=== PATIENT | female | born 1950 | race Caucasian/White ===

== ENCOUNTER 2018-03-08 10:36 | Observation (INO) ==
[2018-03-08] MEDS ORDERED: Ondansetron 4 MG/2 ML VIAL IVP ONE (11:02)
[2018-03-08] MEDS ORDERED: *HR* Dextrose 50 % in Water (Syg) 50 ML SYRINGE IVP PRN ×2 (11:02→13:46)
[2018-03-08] MEDS ORDERED: Pantoprazole 40 MG VIAL IVP ONE (11:02)
[2018-03-08] MEDS ORDERED: 0.9 % Sodium Chloride 1,000 ML IVC ONE (11:02)
--- NOTE | 2018-03-08 11:04 | Emergency Department Note ---
Disposition Clinical Impression: Dehydration, Gastroenteritis and colitis, viral Diabetes mellitus Qualifiers: Diabetes mellitus type: type 2 Diabetes mellitus terminal superintendent insulin use: unspecified snf insulin use status Diabetes mellitus complication status: with hypoglycemia Diabetes mellitus complication detail: without coma Qualified Code(s): E11.649 - Type 2 diabetes mellitus with hypoglycemia without coma Disposition: Admitted As Inpatient Time of Disposition: 12:20 (Dr Evans accepted her as Trulicity may continue to lower her sugar given her Gastroenteritis at risk of hypoglycemic attacks) Abdominal Pain HPI - General Chief Complaint: ED General Medical Stated Complaint: feels bad, stomach hurting, vomiting Source: patient, EMS Mode of arrival: EMS Limitations: no limitations Nursing Notes Reviewed: Yes Vital Signs Reviewed: Yes - History of Present Illness HPI Narrative: Patient is a pleasant with past medical history significant for HTN, DM, Dyslipidemia, ND, CAD, seizure disorder and COPD who is presenting to [facility] Emergency Room with a chief complaint off hypoglycemia. She has switched lately to a new insulin injection weekly Trulicity medication which continues to release and some over the course of the week. She has been nausea as an complaining off vomiting and diarrhea and decreased oral intake. Subsequently she became hypoglycemic and fatigue. Patient denies any fever or chills. Pt also denies any eye pain or visual disturbances. There is no sore throat or facial or nasal congestion. There is no chest pain or racing heart. No shortness of breath or cough. There is no abdominal pain. No dysuria or flank pain. There is no muskulo-skeletal pain, arthralgia or back pain. Patient also denies rash or pruritus. There is no neurological manifestations, no headache, no vertigo or weakness. The patient also denies any depression, hallucinations and there are no homicidal or suicidal ideations. There is no polyuria or polydipsia. There is no easy bruising or bleeding. Review of other systems is otherwise negative except above. Onset (ago): hour(s) Consistency: Worsening Pain Scale: 7 - Related Data Home Medications Medication Instructions Recorded Confirmed Clopidogrel [Plavix] 75 mg PO DAILY 01/28/16 03/08/18 Docusate [Colace] 100 mg PO DAILY 01/28/16 03/08/18 Isosorbide MONOnitrate (24 HR) 30 mg PO DAILY 01/28/16 12/05/17 [Imdur] Levothyroxine [Synthroid] 112 mcg PO 0630 01/28/16 03/08/18 Metoprolol XL (24 HR) Succ [Toprol 50 mg PO DAILY 01/28/16 03/08/18 Xl] Morphine Sulfate [Nia] 30 mg PO TID PRN 01/28/16 03/08/18 Nitroglycerin [Nitrostat] 0.4 mg SL AD PRN MDD pain 01/28/16 03/08/18 Oxycodone HCl/Acetaminophen 1 tab PO Q6H PRN 01/28/16 03/08/18 [Percocet 5-325 mg Tablet] Pantoprazole Sodium [Protonix] 40 mg PO DAILY 01/28/16 03/08/18 Pregabalin [Lyrica] 150 mg PO TID 01/28/16 03/08/18 metFORMIN [Glucophage] 1,000 mg PO BIDWM 01/28/16 03/08/18 Albuterol Neb [Proventil Neb] 2.5 mg IH DAILY 04/25/17 03/08/18 Albuterol Sulfate [Ventolin Hfa] 18 gm IH Q6H PRN 04/25/17 03/08/18 Atorvastatin [Lipitor] 40 mg PO HS 04/25/17 03/08/18 Dulaglutide [Trulicity] 1.5 mg SQ QWEEK 03/08/18 03/08/18 Previous Rx's Medication Instructions Recorded Cholecalciferol (Vitamin D3) 5,000 unit PO BIDWM #60 capsule 02/01/16 [Dialyvite Vitamin D] Allergies Allergy/AdvReac Type Severity Reaction Status Date / Time aspirin Allergy Vomiting Verified 03/08/18 10:39 Penicillins Allergy Hives Verified 03/08/18 10:39 venom-honey bee Allergy Hives Verified 03/08/18 10:39 [bee venom (honey bee)] IVP dye AdvReac Nausea Uncoded 03/08/18 10:39 All systems ED: reviewed and negative except as stated. Review of Systems: As Per HPI Constitutional: Reports: weakness. Denies: fever, chills Eyes: Denies: eye pain, eye discharge, vision change ENT ED: Denies: ear pain, throat pain, dental pain Cardiovascular: Denies: chest pain, palpitations, dyspnea on exertion Respiratory: Denies: cough, dyspnea, wheezes Gastrointestinal: Reports: nausea, vomiting, diarrhea. Denies: abdominal pain Genitourinary: Denies: urgency, dysuria, frequency Musculoskeletal: Denies: back pain, neck pain, joint swelling Neurological: Reports: weakness Endocrine: Reports: fatigue. 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 Psychiatric history: Reports: no psych history - Social History Smoking status: Current every day smoker Alcohol use: Reports: none Drug use: Reports: none Physical Exam - General Limitations: no limitations General appearance: alert, in distress - Head Head exam: atraumatic, normocephalic, normal inspection - Eye Eye exam: Present: normal appearance, PERRL, EOMI - Expanded Eye Exam Pupils: Left: reactive - ENT ENT exam: normal exam, normal oropharynx, mucous membranes dry - Expanded ENT Exam External ear exam: Present: normal external inspection Mouth exam: Present: normal external inspection Teeth exam: Present: normal inspection Throat exam: Present: normal inspection - Neck Neck exam: Present: normal inspection, full ROM, trachea midline - Chest Chest inspection: Present: normal inspection, symmetric chest wall rise - Respiratory Respiratory exam: Present: normal lung sounds bilaterally - Cardiovascular Cardiovascular exam: Present: regular rate, normal rhythm, normal heart sounds - Abdominal Exam Abdominal exam: Present: soft, Non-Tender. Absent: tenderness, distention, guarding, rebound, rigidity - Extremities Exam Extremities exam: Present: normal inspection, full ROM. Absent: tenderness, pedal edema - Expanded Upper Extremity Exam Shoulder exam: Present: normal inspection, full ROM Arm exam: Present: normal inspection, full ROM Elbow exam: Present: normal inspection, full ROM Forearm/Wrist exam: Present: normal inspection, full ROM Hand exam: Present: normal inspection, full ROM Vascular exam: Normal: capillary refill, radial pulse - Expanded Lower Extremity Exam Hip/Pelvis exam: Present: normal inspection, full ROM Upper leg exam: Present: normal inspection, full ROM Knee exam: Present: normal inspection, full ROM Lower leg exam: Present: normal inspection, full ROM Ankle exam: Present: normal inspection, full ROM Foot/toe exam: Present: normal inspection, full ROM Neurovascular/Tendon exam: Absent: motor deficit, sensory deficit, tendon deficit - Back Exam Back exam: Present: normal inspection, full ROM. Absent: tenderness - Neurological Exam Neurological exam: Present: alert, oriented X3 - Expanded Neurological Exam Patient oriented to: Present: person, place, time Coma Scale Eye Opening: Spontaneous Coma Scale Motor Response: Obeys Commands Coma Scale Verbal Response: Oriented Coma Scale Total: 15 - Psychiatric Psychiatric exam: Present: normal affect, normal mood - Skin Skin exam: Present: warm, dry, intact, normal color, other (Pale and dry) Course Course Narrative: STAT IVF Zofran Accucheck and monitoring Vital Signs Temperature 98 F 03/08/18 10:40 Pulse Rate 75 03/08/18 10:40 Respiratory Rate 18 03/08/18 10:40 Blood Pressure 142/68 03/08/18 10:40 O2 Sat by Pulse Oximetry 96 03/08/18 10:40 Temperature 97.6 F 03/08/18 13:45 Pulse Rate 70 03/08/18 13:45 Respiratory Rate 18 03/08/18 13:45 Blood Pressure 125/67 03/08/18 13:45 O2 Sat by Pulse Oximetry 96 03/08/18 13:45 Oxygen Delivery Oxygen Delivery Room Air Abdominal Pain - Differential Diagnosis Differential Diagnosis: Likely: acute appendicitis, calculus of kidney, colonic obstruction, pancreatitis - Medical Records Medical records reviewed: Yes I reviewed the patient's medical records. - Lab Data Lab results reviewed: Yes I reviewed the patient's lab results. Result diagrams: 03/08/18 11:15 03/08/18 11:15 Lab Results 03/08/18 03/08/18 03/08/18 Range/Units 11:15 11:15 11:15 WBC 10.0 (4.3-11.1) K/mcL RBC 4.96 (3.82-4.97) M/mcL Hgb 14.6 (11.5-15.4) g/dL Hct 43.7 (35.3-44.9) % MCV 88.1 (83.0-100.0) fL MCH 29.4 (28.0-33.3) pg MCHC 33.4 (31.6-35.5) g/dL RDW 14.1 (11.5-14.5) % Plt Count 226 (140-400) K/mcL MPV 8.6 L (9.4-12.4) fL Immature Gran % 0.3 (0-4) % Seg Neutrophils % 72.0 % Lymphocytes % 18.8 % Monocytes % 7.0 % Eosinophils % 1.7 % Basophils % 0.2 % Neutrophils # 7.2 (1.6-8.9) K/mcL Lymphocytes # 1.9 (0.6-4.6) K/mcL Monocytes # 0.7 (0.0-1.3) K/mcL Eosinophils # 0.2 (0.0-0.6) K/mcL Basophils # 0.0 (0.0-0.2) K/mcL PT 12.3 H (9.4-12.1) Seconds INR 1.1 APTT 34.6 (26.0-36.0) Seconds Sodium 135 L (136-145) mEq/L Potassium 3.8 (3.5-5.1) mEq/L Chloride 102 (98-107) mEq/L Carbon Dioxide 25 (23-29) mEq/L BUN 11 (8-23) mg/dL Creatinine 0.98 (0.60-1.20) mg/dL Est GFR ( Amer) > 60 (> 60) Est GFR (Non-Af Amer) 56 L (> 60) BUN/Creatinine Ratio 11 (6-26) Glucose 145 H (70-105) mg/dL POC Glucose (70-99) mg/dL Calculated Osmolality 282 (280-300) Lactic Acid (0.5-2.2) mmol/L Calcium 9.4 (8.6-10.3) mg/dL Total Bilirubin 0.4 (0.3-1.0) mg/dL Direct Bilirubin 0.1 (0.0-0.2) mg/dL Indirect Bilirubin 0.3 (0.0-1.2) mg/dL AST 10 L (13-39) Units/L ALT 6 L (7-52) Units/L Alkaline Phosphatase 88 (34-104) Units/L Serum Total Protein 6.9 (6.4-8.9) g/dL Albumin 3.5 (3.5-5.7) g/dL Globulin 3.4 (2.4-3.5) g/dL Albumin/Globulin Ratio 1.0 L (1.1-2.2) Lipase 18 (11-82) Units/L Urine Color (Yellow) Urine Clarity (Clear) Urine pH (5.0-8.0) pH Units Ur Specific [place] (1.010-1.025) Urine Protein (Neg-Trace) mg/dL Urine Glucose (UA) (Normal) mg/dL Urine Ketones (Negative) mg/dL Urine Blood (Negative) Urine Nitrite (Negative) Urine Bilirubin (Negative) Urine Urobilinogen (Normal) mg/dL Ur Leukocyte Esterase (Negative) Urine Microscopic RBC (0-3) per hpf Urine Microscopic WBC (0-3) per hpf Ur Squamous Epith Cells (None-Few) per lpf Urine Bacteria (None-Few) per hpf Hyaline Casts (None-Few) per lpf Ur Culture Indicated? (NO) 03/08/18 03/08/18 03/08/18 Range/Units 11:15 11:17 12:05 WBC (4.3-11.1) K/mcL RBC (3.82-4.97) M/mcL Hgb (11.5-15.4) g/dL Hct (35.3-44.9) % MCV (83.0-100.0) fL MCH (28.0-33.3) pg MCHC (31.6-35.5) g/dL RDW (11.5-14.5) % Plt Count (140-400) K/mcL MPV (9.4-12.4) fL Immature Gran % (0-4) % Seg Neutrophils % % Lymphocytes % % Monocytes % % Eosinophils % % Basophils % % Neutrophils # (1.6-8.9) K/mcL Lymphocytes # (0.6-4.6) K/mcL Monocytes # (0.0-1.3) K/mcL Eosinophils # (0.0-0.6) K/mcL Basophils # (0.0-0.2) K/mcL PT (9.4-12.1) Seconds INR APTT (26.0-36.0) Seconds Sodium (136-145) mEq/L Potassium (3.5-5.1) mEq/L Chloride (98-107) mEq/L Carbon Dioxide (23-29) mEq/L BUN (8-23) mg/dL Creatinine (0.60-1.20) mg/dL Est GFR ( Amer) (> 60) Est GFR (Non-Af Amer) (> 60) BUN/Creatinine Ratio (6-26) Glucose (70-105) mg/dL POC Glucose 148 H (70-99) mg/dL Calculated Osmolality (280-300) Lactic Acid 1.5 (0.5-2.2) mmol/L Calcium (8.6-10.3) mg/dL Total Bilirubin (0.3-1.0) mg/dL Direct Bilirubin (0.0-0.2) mg/dL Indirect Bilirubin (0.0-1.2) mg/dL AST (13-39) Units/L ALT (7-52) Units/L Alkaline Phosphatase (34-104) Units/L Serum Total Protein (6.4-8.9) g/dL Albumin (3.5-5.7) g/dL Globulin (2.4-3.5) g/dL Albumin/Globulin Ratio (1.1-2.2) Lipase (11-82) Units/L Urine Color Yellow (Yellow) Urine Clarity Slightly Cloudy A (Clear) Urine pH 5.5 (5.0-8.0) pH Units Ur Specific [place] <= 1.005 L (1.010-1.025) Urine Protein Negative (Neg-Trace) mg/dL Urine Glucose (UA) Normal (Normal) mg/dL Urine Ketones Negative (Negative) mg/dL Urine Blood Negative (Negative) Urine Nitrite Positive A (Negative) Urine Bilirubin Negative (Negative) Urine Urobilinogen Normal (Normal) mg/dL Ur Leukocyte Esterase Small H (Negative) Urine Microscopic RBC 0-3 (0-3) per hpf Urine Microscopic WBC 15-30 H (0-3) per hpf Ur Squamous Epith Cells Few (None-Few) per lpf Urine Bacteria Many H (None-Few) per hpf Hyaline Casts Few (None-Few) per lpf Ur Culture Indicated? YES A (NO) - Radiology Data Radiology results reviewed: Yes I reviewed the patient's radiology results. - EKG Data EKG attestation: Yes I reviewed and interpreted this EKG.
[2018-03-08] MEDS ORDERED: Insulin Human Regular 100 UNIT in 0.9 % Sodium Chloride 100 ML IVC SCH (11:15)
[2018-03-08 11:22] LABS: Basophils % 0.2 %; Eosinophils # 0.2 K/mcL (0.0-0.6); Eosinophils % 1.7 %; Hematocrit 43.7 % (35.3-44.9); Hemoglobin 14.6 g/dL (11.5-15.4); Immature Granulocytes % 0.3 % (0-4); Lymphocytes # 1.9 K/mcL (0.6-4.6); Lymphocytes % 18.8 %; Mean Corpuscular HGB Conc 33.4 g/dL (31.6-35.5); Mean Corpuscular Hemoglobin 29.4 pg (28.0-33.3); Mean Corpuscular Volume 88.1 fL (83.0-100.0); Mean Platelet Volume 8.6 fL (9.4-12.4); Monocytes # 0.7 K/mcL (0.0-1.3); Neutrophils # 7.2 K/mcL (1.6-8.9); Platelet Count 226 K/mcL (140-400); Red Blood Count 4.96 M/mcL (3.82-4.97); Red Cell Distribution Width 14.1 % (11.5-14.5)
[2018-03-08 11:31] LABS: INR 1.1; Prothrombin Time 12.3 Seconds (9.4-12.1)
[2018-03-08 11:34] LABS: Activated Partial Thrombo Time 34.6 Seconds (26.0-36.0)
[2018-03-08 11:40] LABS: Alanine Aminotransferase 6 Units/L (7-52); Albumin 3.5 g/dL (3.5-5.7); Alkaline Phosphatase 88 Units/L (34-104); Aspartate Amino Transferase 10 Units/L (13-39); BUN/Creatinine Ratio 11 (6-26); Bilirubin,Direct 0.1 mg/dL (0.0-0.2); Bilirubin,Indirect 0.3 mg/dL (0.0-1.2); Bilirubin,Total 0.4 mg/dL (0.3-1.0); Blood Urea Nitrogen 11 mg/dL (8-23); Calcium 9.4 mg/dL (8.6-10.3); Carbon Dioxide 25 mEq/L (23-29); Chloride 102 mEq/L (98-107); Globulin 3.4 g/dL (2.4-3.5); Glucose 145 mg/dL (70-105); Lipase 18 Units/L (11-82); Osmolality,Calculated 282 (280-300); Potassium 3.8 mEq/L (3.5-5.1); Sodium 135 mEq/L (136-145); Total Protein 6.9 g/dL (6.4-8.9); eGFR For African Americans > 60 (> 60); eGFR For Non-African Americans 56 (> 60)
[2018-03-08 12:13] LABS: Bilirubin,Urine Negative (Negative); Blood,Urine Negative (Negative); Clarity,Urine Slightly Cloudy (Clear); Color,Urine Yellow (Yellow); Glucose,Urine (UA) Normal (Normal); Ketones,Urine Negative (Negative); Leukocyte Esterase,Urine Small (Negative); Nitrite,Urine Positive (Negative); PH,Urine 5.5 pH Units (5.0-8.0); Protein,Urine Negative (Neg-Trace); Specific Gravity,Urine <= 1.005 (1.010-1.025); Urobilinogen,Urine Normal (Normal)
[2018-03-08 12:21] LABS: RBC,Urine 0-3 per hpf (0-3); WBC,Urine 15-30 per hpf (0-3)
[2018-03-08 12:22] LABS: Hyaline Casts,Urine Few per lpf (None-Few); Squamous Epithelial Cell,Urine Few per lpf (None-Few)
[2018-03-08 12:23] LABS: Bacteria,Urine Many per hpf (None-Few)
[2018-03-08] MEDS ORDERED: Naloxone 0.4 MG/ML INJ IVP PRN ×2 (12:47→13:46)
[2018-03-08] MEDS ORDERED: 0.9 % Sodium Chloride 1,000 ML IVC SCH ×2 (13:00→13:46)
[2018-03-08] MEDS ORDERED: *HR* Morphine Sulfate SR (12 HR) 30 MG TABLET.ER PO PRN (13:46)
[2018-03-08] MEDS ORDERED: *HR* OxyCODONE/APAP 5/325 TABLET PO PRN (13:46)
[2018-03-08] MEDS ORDERED: Nitroglycerin 0.4 MG TAB.SUBL SL PRN (13:46)
[2018-03-08] MEDS: Cholecalciferol (D-3) 1,000 UNIT TABLET PO SCH (15:43)
--- NOTE | 2018-03-08 17:50 | Internal Med History&Physical ---
Date of Encounter: 03/08/18 Time of Encounter: 17:15 Assessment and Plan (1) Vomiting Current visit: Yes Status: Acute She will be given IV fluids. Anti-emetics will be used as needed. Qualifiers: Vomiting type: unspecified Vomiting Intractability: non-intractable Nausea presence: with nausea Qualified Code(s): R11.2 - Nausea with vomiting, unspecified (2) UTI (urinary tract infection) Current visit: Yes Status: Acute She will be given Rocephin empirically. Qualifiers: Urinary tract infection type: site unspecified Hematuria presence: without hematuria Qualified Code(s): N39.0 - Urinary tract infection, site not specified Internal Medicine - H&P: HPI Chief complaint: Vomiting Admitted From: Emergency Dept Plans for Post Hospital Care: Home History of present illness: Ms. Lund is a 67 year old female who came to emergency room stating she had onset of vomiting approximately 10 days ago after initiation of weekly Trulicity injection. She reports intermittent vomiting without hematemesis over the next 10 days. She had small amount of diarrhea and mild abdominal discomfort. When she did not improve spontaneously her family and home health providers recommend she come to emergency room. She was evaluated and admitted to [facility] floor for ongoing care needs. She states she still has mild abdominal discomfort at the present time. She reports no family members are similarly affected. She denies disorders of her liver gallbladder or exocrine pancreas otherwise. Past Med Surg Social Fam HX - Past Medical History Medical history: arthritis, CHF, COPD, coronary artery disease, CVA, diabetes, fibromyalgia, GERD, hyperlipidemia, hypertension, myocardial infarction, seizures, thyroid disease Psychiatric history: no psych history - Past Surgical History Surgical History: non-contributory, orthopedic, other, other Additional surgical history: back surgery x 3, HEART STENTS X 2, rt shoulder replacement, and left shoulder surgery - Social History Smoking Status: Current every day smoker Packs per day: 0.5 Smokeless Tobacco Status: No Alcohol use: none Drug use: none Internal Medicine - H&P: Meds Clopidogrel [Plavix] 75 mg PO DAILY 01/28/16 [History] Docusate [Colace] 100 mg PO DAILY 01/28/16 [History] Isosorbide MONOnitrate (24 HR) [Imdur] 30 mg PO DAILY 01/28/16 [History] Levothyroxine [Synthroid] 112 mcg PO 30 01/28/16 [History] Metoprolol XL (24 HR) Succ [Toprol Xl] 50 mg PO DAILY 01/28/16 [History] Morphine Sulfate [Nia] 30 mg PO TID PRN 01/28/16 [History] Nitroglycerin [Nitrostat] 0.4 mg SL AD PRN MDD pain 01/28/16 [History] Oxycodone HCl/Acetaminophen [Percocet 5-325 mg Tablet] 1 tab PO Q6H PRN [History] Pantoprazole Sodium [Protonix] 40 mg PO DAILY 01/28/16 [History] Pregabalin [Lyrica] 150 mg PO TID 01/28/16 [History] metFORMIN [Glucophage] 1,000 mg PO BIDWM 01/28/16 [History] Cholecalciferol (Vitamin D3) [Dialyvite Vitamin D] 5,000 unit PO BIDWM #60 capsule 02/01/16 [Rx] Albuterol Neb [Proventil Neb] 2.5 mg IH DAILY 04/25/17 [History] Albuterol Sulfate [Ventolin Hfa] 18 gm IH Q6H PRN 04/25/17 [History] Atorvastatin [Lipitor] 40 mg PO HS 04/25/17 [History] Dulaglutide [Trulicity] 1.5 mg SQ QWEEK 03/08/18 [History] 3 Allergy/AdvReac Type Severity Reaction Status Date / Time aspirin Allergy Vomiting Verified 03/08/18 10:39 Penicillins Allergy Hives Verified 03/08/18 10:39 venom-honey bee Allergy Hives Verified 03/08/18 10:39 [bee venom (honey bee)] IVP dye AdvReac Nausea Uncoded 03/08/18 10:39 All Systems PM: A 10-system review of systems was performed and is negative for pertinent findings except as documented above in the HPI. Review of systems: Gen.: She states her weight is decreased approximately 20 pounds in the past year, unintentionally Cardiovascular: She has had hypertension documented intermittently in the past. She has known ASHD status post OH on 3 occasions with most recent one approximately 2008. She reports stents were placed approximately 2008 and 2009. Her most recent heart catheter was 04/26/2017 at [facility] which showed LMCA free of disease, 60% stenosis in ostial LAD, 30-40% stenosis in mid LAD, 40% stenosis in distal circumflex, 70% stenosis in ostial RCA, and 50% stenosis in proximal RCA. She denies DVT or pulmonary embolus. She reports a history of heart failure. Echocardiogram 04/05/2017 showed LVEF 60% with mild LV diastolic dysfunction no significant valvular abnormality seen. Respiratory: She has smoked since age 8 up to 4 packs per day. She reports she changed from cigarettes to small cigars approximately 4 years ago. She has a diagnosis of COPD and uses oxygen at bedtime. She has been diagnosed with TAMARA but states she cannot tolerate CPAP mask secondary to claustrophobia GI: As per history of present illness : She had decreased estimated GFR in emergency room but denies known diagnoses of chronic kidney disease. She denies disorders of her kidney or bladder otherwise. 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 She reports seizures in childhood but none that she can recall in adulthood. Endocrine: She was diagnosed with DM 2 approximately 2009. She has hypothyroidism and hyperlipidemia. Hematology/oncology: She has history of anemia. She denies documented internal malignancies. Psychiatric: She denies anxiety depression or other mental health issues [place] skeletal: She reports injury to rotator cuff bilaterally, DJD and fibromyalgia diagnoses. She reports 3 back surgeries and has chronic low back pain. She had right hip fracture repair in the past. - Constitutional Vitals: Temp Pulse Resp BP Pulse Ox 97.6 F 70 18 125/67 96 03/08/18 13:45 03/08/18 13:45 03/08/18 13:45 03/08/18 13:45 03/08/18 13:45 Exam: Gen.: She is well-developed well-nourished female who appears in no acute distress at present time HEENT: Head is atraumatic and normocephalic. Eyes: EOMI. There is no scleral icterus. Mouth: Mucosa is moist. Neck: Supple and nontender. There is no thyromegaly or adenopathy noted. Heart: Regular without murmurs gallops or ectopics. Lungs: No wheezes or crackles are heard. Abdomen: Soft and nontender. No masses or guarding are noted. Extremities: There is no cyanosis edema or clubbing noted. Dorsalis pedis and posterior tibial pulses are 1-2 over 2 bilaterally. Neurologic: Mental status: She is talkative and a good historian. Cranial nerves: Smile is symmetric. Forehead wrinkles bilaterally. Tongue protrudes midline. EOMI. Motor: There is no pronator drift. Cerebellar: Finger to nose is intact bilaterally. Skin: Warm and dry Internal Med - H&P Results - Labs CBC & Chem 7: 03/08/18 11:15 03/08/18 11:15
[2018-03-08] MEDS: Pregabalin 75 MG CAPSULE PO SCH ×2 (18:13→19:57)
[2018-03-08] MEDS: cefTRIAXone 1,000 MG in Water for inj. (sterile) 20 ML 10 ML IVP SCH (19:55)
[2018-03-08] MEDS: 0.45 % Sodium Chloride w/KCl 20 MEQ/1,000 ML MLS IVC SCH (19:56)
[2018-03-09 06:52] LABS: Basophils % 0.2 %; Eosinophils # 0.2 K/mcL (0.0-0.6); Eosinophils % 2.4 %; Hematocrit 40.2 % (35.3-44.9); Hemoglobin 13.2 g/dL (11.5-15.4); Immature Granulocytes % 0.4 % (0-4); Lymphocytes # 1.9 K/mcL (0.6-4.6); Lymphocytes % 20.2 %; Mean Corpuscular HGB Conc 32.8 g/dL (31.6-35.5); Mean Corpuscular Hemoglobin 29.4 pg (28.0-33.3); Mean Corpuscular Volume 89.5 fL (83.0-100.0); Mean Platelet Volume 8.4 fL (9.4-12.4); Monocytes # 0.6 K/mcL (0.0-1.3); Neutrophils # 6.7 K/mcL (1.6-8.9); Platelet Count 192 K/mcL (140-400); Red Blood Count 4.49 M/mcL (3.82-4.97); Red Cell Distribution Width 14.3 % (11.5-14.5); Segmented Neutrophils % 70.8 %
[2018-03-09 07:11] LABS: BUN/Creatinine Ratio 11 (6-26); Blood Urea Nitrogen 10 mg/dL (8-23); Calcium 8.5 mg/dL (8.6-10.3); Carbon Dioxide 22 mEq/L (23-29); Chloride 108 mEq/L (98-107); Glucose 133 mg/dL (70-105); Osmolality,Calculated 283 (280-300); Potassium 3.8 mEq/L (3.5-5.1); Sodium 136 mEq/L (136-145); eGFR For African Americans > 60 (> 60); eGFR For Non-African Americans 58 (> 60)
[2018-03-09 07:14] VITALS: BP 116/66
[2018-03-09] MEDS: Pregabalin 75 MG CAPSULE PO SCH (08:37)
[2018-03-09] MEDS: cefTRIAXone 1,000 MG in Water for inj. (sterile) 20 ML 10 ML IVP SCH (08:38)
[2018-03-09] MEDS: Cholecalciferol (D-3) 1,000 UNIT TABLET PO SCH (08:38)
[2018-03-09] MEDS: 0.45 % Sodium Chloride w/KCl 20 MEQ/1,000 ML MLS IVC SCH (08:43)
[2018-03-09] MEDS ORDERED: Albuterol 2.5 MG/3 ML NEBULIZER IH PRN (09:00)
[2018-03-09] MEDS ORDERED: Metoprolol XL (24 HR) Succ 25 MG TAB.ER.24H PO SCH (09:00)
[2018-03-09] MEDS ORDERED: Isosorbide MONOnitrate (24 HR) 30 MG TAB.ER.24H PO SCH (09:00)
--- NOTE | 2018-03-09 10:55 | Discharge Summary ---
Date of Encounter: 03/09/18 Time of Encounter: 10:20 - Discharge Diagnosis (1) Vomiting Priority: Primary Status: Resolved Qualifiers: Vomiting type: unspecified Vomiting Intractability: non-intractable Nausea presence: with nausea Qualified Code(s): R11.2 - Nausea with vomiting, unspecified (2) UTI (urinary tract infection) Priority: Secondary Status: Acute Qualifiers: Urinary tract infection type: site unspecified Hematuria presence: without hematuria Qualified Code(s): N39.0 - Urinary tract infection, site not specified Hospital course: Ms. Lund is a 67 year old female who came to emergency room stating she had onset of vomiting approximately 10 days ago after initiation of weekly Trulicity injection. She reports intermittent vomiting without hematemesis over the next 10 days. She had small amount of diarrhea and mild abdominal discomfort. When she did not improve spontaneously her family and home health providers recommend she come to emergency room. She was evaluated and admitted to [facility] for ongoing care needs. Initial orders were written by the emergency room physician. I saw her on March 08 and performed a history and physical. She was given IV fluids. Antiemetics were used as needed. She had no further vomiting after admission. Oral intake was adequate. On March 09 she was stable for discharge home. She will follow with her PCP Dr. Deni Frank within 1 week. She will be given Zofran ODT for prn use for nausea. She was given Rocephin empirically for UTI. She remained afebrile and follow- up WBC and differential were unremarkable. She will continue with 2 additional days of antibiotic and probiotic at discharge. - Time Spent with Patient Total time spent providing and/or coordinating discharge services: - Discharge Medications Prescriptions: Ondansetron ODT [Zofran ODT] 4 mg SL Q4HR #6 tab.rapdis Lactobacillus [Culturelle] 1 each PO BID #4 cap.sprink Nitrofurantoin Monohyd/M-Cryst [Macrobid 100 mg Capsule] 100 mg PO BID #4 capsule Home Medications: Clopidogrel [Plavix] 75 mg PO DAILY 01/28/16 [History] Docusate [Colace] 100 mg PO DAILY 01/28/16 [History] Isosorbide MONOnitrate (24 HR) [Imdur] 30 mg PO DAILY 01/28/16 [History] Levothyroxine [Synthroid] 112 mcg PO 0630 01/28/16 [History] Metoprolol XL (24 HR) Succ [Toprol Xl] 50 mg PO DAILY 01/28/16 [History] Morphine Sulfate [Nia] 30 mg PO TID PRN 01/28/16 [History] Nitroglycerin [Nitrostat] 0.4 mg SL AD PRN MDD pain 01/28/16 [History] Oxycodone HCl/Acetaminophen [Percocet 5-325 mg Tablet] 1 tab PO Q6H PRN [History] Pantoprazole Sodium [Protonix] 40 mg PO DAILY 01/28/16 [History] Pregabalin [Lyrica] 150 mg PO TID 01/28/16 [History] metFORMIN [Glucophage] 1,000 mg PO BIDWM 01/28/16 [History] Cholecalciferol (Vitamin D3) [Dialyvite Vitamin D] 5,000 unit PO BIDWM #60 capsule 02/01/16 [Rx] Albuterol Neb [Proventil Neb] 2.5 mg IH DAILY 04/25/17 [History] Albuterol Sulfate [Ventolin Hfa] 18 gm IH Q6H PRN 04/25/17 [History] Atorvastatin [Lipitor] 40 mg PO HS 04/25/17 [History] Dulaglutide [Trulicity] 1.5 mg SQ QWEEK 03/08/18 [History] Lactobacillus [Culturelle] 1 each PO BID #4 cap.sprink 03/09/18 [Rx] Nitrofurantoin Monohyd/M-Cryst [Macrobid 100 mg Capsule] 100 mg PO BID #4 capsule 03/09/18 [Rx] Ondansetron ODT [Zofran ODT] 4 mg SL Q4HR #6 tab.rapdis 03/09/18 [Rx] Allergies/Adverse Reactions: 3 Allergy/AdvReac Type Severity Reaction Status Date / Time aspirin Allergy Vomiting Verified 03/08/18 10:39 Penicillins Allergy Hives Verified 03/08/18 10:39 venom-honey bee Allergy Hives Verified 03/08/18 10:39 [bee venom (honey bee)] IVP dye AdvReac Nausea Uncoded 03/08/18 10:39 Date of admission: 03/08/18 13:31 Primary care physician: Deni Frank MD Consults: 03/08/18 14:01 Consult to Doctor Of Naturopathic Medicine [CONS] Routine Reason for SW Consult: pt has home health services - Constitutional Vitals: Temp Pulse Resp BP Pulse Ox 98.4 F 82 17 116/66 92 03/09/18 07:11 03/09/18 07:11 03/09/18 07:11 03/09/18 07:11 03/09/18 08:00 - Patient Status Disposition: Home Health Service Overall status at discharge: patient is progressing back to baseline - Discharge Instructions Follow Up With: Deni Frank MD [Primary Care Provider] - 1 week - Diet and Activity Activity: resume usual activities as tolerated Diet: advance to your usual diet
== END 2018-03-09 12:40 | disposition home health service (06) ==
LOC: INPPIK 10:36 → EMEROOPIK 10:36 → INPPIK 13:40
PROVIDERS: ADMIT Internal Medicine; ATTEND Internal Medicine

== ENCOUNTER 2020-02-14 12:43 | Inpatient (IN) ==
[2020-02-15] MEDS ORDERED: Albuterol 2.5 MG/3 ML NEBULIZER IH PRN (12:18)
[2020-02-15] MEDS ORDERED: Nitroglycerin 0.4 MG TAB.SUBL SL PRN (12:18)
[2020-02-15] MEDS ORDERED: Dextrose Gel 15 GM/37.5 ML TUBE PO PRN ×2 (12:25)
[2020-02-15] MEDS ORDERED: D5% in Water 1,000 ML IVC PRN (12:25)
[2020-02-15] MEDS ORDERED: *HR* Dextrose 50 % in Water (Syg) 50 ML SYRINGE IVP PRN (12:25)
[2020-02-15] MEDS ORDERED: Morphine Sulfate ER (12 HR) 30 MG TABLET.ER PO SCH (12:30)
[2020-02-15] MEDS: Insulin LISPRO 300 UNITS/3 ML VIAL SQ SCH ×2 (17:10→21:01)
[2020-02-15] MEDS: *HR* Metformin 500 MG TABLET PO SCH (17:11)
[2020-02-15] MEDS: Morphine Sulfate ER (12 HR) 15 MG TABLET.ER PO SCH (17:11)
[2020-02-15] MEDS: Isosorbide MONOnitrate (24 HR) 30 MG TAB.ER.24H PO SCH (17:11)
[2020-02-15] MEDS: carvediloL 6.25 MG TABLET PO SCH (17:11)
[2020-02-15] MEDS: Pregabalin 50 MG CAPSULE PO SCH (20:55)
[2020-02-15] MEDS ORDERED: NON-FORMULARY MEDICATION 1 EACH EACH (Insulin Detemir [Levemir Flextouch] 20 UNIT) SQ SCH (21:00)
[2020-02-15] MEDS: Insulin DETEMIR 100 UNIT/ML X5UNITS SQ SCH (21:01)
[2020-02-16] MEDS: Morphine Sulfate ER (12 HR) 15 MG TABLET.ER PO SCH ×2 (06:04→17:34)
[2020-02-16 07:35] LABS: Basophils % 0.2 %; Eosinophils # 0.1 K/mcL (0.0-0.6); Eosinophils % 0.5 %; Hematocrit 32.9 % (35.3-44.9); Hemoglobin 10.7 g/dL (11.5-15.4); Immature Granulocytes % 0.3 % (0-4); Lymphocytes # 1.1 K/mcL (0.6-4.6); Lymphocytes % 11.3 %; Mean Corpuscular HGB Conc 32.5 g/dL (31.6-35.5); Mean Corpuscular Hemoglobin 30.1 pg (28.0-33.3); Mean Corpuscular Volume 92.7 fL (83.0-100.0); Mean Platelet Volume 8.5 fL (9.4-12.4); Monocytes # 0.6 K/mcL (0.0-1.3); Monocytes % 6.6 %; Neutrophils # 7.9 K/mcL (1.6-8.9); Platelet Count 250 K/mcL (140-400); Red Blood Count 3.55 M/mcL (3.82-4.97); Red Cell Distribution Width 15.6 % (11.5-14.5); Segmented Neutrophils % 81.1 %; White Blood Count 9.8 K/mcL (4.3-11.1)
[2020-02-16] MEDS: Tiotropium 18 MCG inhalation IH SCH (07:40)
[2020-02-16 07:53] LABS: BUN/Creatinine Ratio 16 (6-26); Blood Urea Nitrogen 11 mg/dL (8-23); Calcium 8.3 mg/dL (8.6-10.3); Carbon Dioxide 29 mEq/L (23-29); Chloride 105 mEq/L (98-107); Glucose 61 mg/dL (70-105); Osmolality,Calculated 293 (280-300); Potassium 3.5 mEq/L (3.5-5.1); Sodium 143 mEq/L (136-145); eGFR For African Americans > 60 (> 60); eGFR For Non-African Americans > 60 (> 60)
[2020-02-16] MEDS: Insulin LISPRO 300 UNITS/3 ML VIAL SQ SCH ×4 (09:02→21:33)
[2020-02-16] MEDS: Insulin DETEMIR 100 UNIT/ML X5UNITS SQ SCH ×2 (09:13→21:32)
[2020-02-16] MEDS: lisinopriL 5 MG TABLET PO SCH (09:14)
[2020-02-16] MEDS: Furosemide 20 MG TABLET PO SCH (09:15)
[2020-02-16] MEDS: Cholecalciferol (D-3) 1,000 UNIT (25MCG) TABLET PO SCH (09:15)
[2020-02-16] MEDS: Pregabalin 50 MG CAPSULE PO SCH ×2 (09:15→21:27)
[2020-02-16] MEDS: carvediloL 6.25 MG TABLET PO SCH ×2 (09:15→17:34)
[2020-02-16] MEDS: *HR* Metformin 500 MG TABLET PO SCH ×3 (09:16→17:37)
[2020-02-16] MEDS: *HR* OxyCODONE/APAP 5/325 TABLET PO PRN (09:21)
[2020-02-16] MEDS: Isosorbide MONOnitrate (24 HR) 30 MG TAB.ER.24H PO SCH (17:34)
[2020-02-17] MEDS: Morphine Sulfate ER (12 HR) 15 MG TABLET.ER PO SCH ×2 (05:54→16:45)
[2020-02-17] MEDS: Tiotropium 18 MCG inhalation IH SCH (08:18)
[2020-02-17] MEDS: Insulin LISPRO 300 UNITS/3 ML VIAL SQ SCH ×4 (08:50→21:57)
[2020-02-17] MEDS: Cholecalciferol (D-3) 1,000 UNIT (25MCG) TABLET PO SCH (08:56)
[2020-02-17] MEDS: Pregabalin 50 MG CAPSULE PO SCH ×2 (08:56→21:52)
[2020-02-17] MEDS: *HR* Metformin 500 MG TABLET PO SCH ×2 (08:56→16:41)
[2020-02-17] MEDS: Insulin DETEMIR 100 UNIT/ML X5UNITS SQ SCH ×2 (08:57→21:57)
[2020-02-17] MEDS: Isosorbide MONOnitrate (24 HR) 30 MG TAB.ER.24H PO SCH (16:45)
[2020-02-18] MEDS: Morphine Sulfate ER (12 HR) 15 MG TABLET.ER PO SCH ×2 (06:55→16:43)
[2020-02-18] MEDS: *HR* Metformin 500 MG TABLET PO SCH ×2 (08:45→16:42)
[2020-02-18] MEDS: Insulin LISPRO 300 UNITS/3 ML VIAL SQ SCH ×4 (08:45→21:38)
[2020-02-18] MEDS: Cholecalciferol (D-3) 1,000 UNIT (25MCG) TABLET PO SCH (08:45)
[2020-02-18] MEDS: Pregabalin 50 MG CAPSULE PO SCH ×2 (08:45→21:33)
[2020-02-18] MEDS: Insulin DETEMIR 100 UNIT/ML X5UNITS SQ SCH ×2 (08:46→21:37)
[2020-02-18] MEDS: Furosemide 20 MG TABLET PO SCH (10:13)
[2020-02-18] MEDS: carvediloL 6.25 MG TABLET PO SCH (10:16)
[2020-02-18] MEDS: lisinopriL 5 MG TABLET PO SCH (10:17)
[2020-02-18] MEDS: Tiotropium 18 MCG inhalation IH SCH (10:20)
[2020-02-18] MEDS ORDERED: Morphine Sulfate ER (12 HR) 15 MG TABLET.ER PO ONE (11:08)
[2020-02-18] MEDS: Isosorbide MONOnitrate (24 HR) 30 MG TAB.ER.24H PO SCH (16:42)
[2020-02-18] MEDS: *HR* OxyCODONE/APAP 5/325 TABLET PO PRN (21:33)
[2020-02-19] MEDS: Morphine Sulfate ER (12 HR) 15 MG TABLET.ER PO SCH ×2 (06:30→17:05)
[2020-02-19] MEDS: Insulin LISPRO 300 UNITS/3 ML VIAL SQ SCH ×4 (08:03→21:14)
[2020-02-19] MEDS: Pregabalin 50 MG CAPSULE PO SCH ×2 (08:20→21:13)
[2020-02-19] MEDS: Cholecalciferol (D-3) 1,000 UNIT (25MCG) TABLET PO SCH (08:20)
[2020-02-19] MEDS: Furosemide 20 MG TABLET PO SCH (08:20)
[2020-02-19] MEDS: *HR* Metformin 500 MG TABLET PO SCH ×2 (08:20→17:05)
[2020-02-19] MEDS: *HR* OxyCODONE/APAP 5/325 TABLET PO PRN ×2 (08:22→21:13)
[2020-02-19] MEDS: Insulin DETEMIR 100 UNIT/ML X5UNITS SQ SCH ×2 (09:56→21:26)
[2020-02-19] MEDS: Tiotropium 18 MCG inhalation IH SCH (10:36)
[2020-02-19] MEDS: Isosorbide MONOnitrate (24 HR) 30 MG TAB.ER.24H PO SCH (17:05)
[2020-02-19] MEDS: Nystatin POWDER 30 GM BOTTLE TP SCH (21:24)
[2020-02-20] MEDS: Morphine Sulfate ER (12 HR) 15 MG TABLET.ER PO SCH ×2 (06:46→17:25)
[2020-02-20] MEDS: Insulin LISPRO 300 UNITS/3 ML VIAL SQ SCH ×4 (07:53→21:01)
[2020-02-20] MEDS: Insulin DETEMIR 100 UNIT/ML X5UNITS SQ SCH ×2 (08:18→21:05)
[2020-02-20] MEDS: Cholecalciferol (D-3) 1,000 UNIT (25MCG) TABLET PO SCH (08:19)
[2020-02-20] MEDS: Pregabalin 50 MG CAPSULE PO SCH ×2 (08:19→20:58)
[2020-02-20] MEDS: *HR* Metformin 500 MG TABLET PO SCH ×2 (08:19→17:25)
[2020-02-20] MEDS: Furosemide 20 MG TABLET PO SCH (08:19)
[2020-02-20] MEDS: Nystatin POWDER 30 GM BOTTLE TP SCH ×2 (08:20→21:00)
[2020-02-20] MEDS: Tiotropium 18 MCG inhalation IH SCH (09:14)
[2020-02-20] MEDS: *HR* OxyCODONE/APAP 5/325 TABLET PO PRN ×2 (12:10→20:58)
[2020-02-20] MEDS: carvediloL 6.25 MG TABLET PO SCH (17:25)
[2020-02-20] MEDS: Isosorbide MONOnitrate (24 HR) 30 MG TAB.ER.24H PO SCH (17:25)
[2020-02-21] MEDS: Morphine Sulfate ER (12 HR) 15 MG TABLET.ER PO SCH ×2 (05:21→18:25)
[2020-02-21] MEDS: Tiotropium 18 MCG inhalation IH SCH (08:56)
[2020-02-21] MEDS: *HR* Metformin 500 MG TABLET PO SCH ×2 (09:44→18:25)
[2020-02-21] MEDS: Pregabalin 50 MG CAPSULE PO SCH ×2 (09:45→21:10)
[2020-02-21] MEDS: Furosemide 20 MG TABLET PO SCH (09:45)
[2020-02-21] MEDS: Insulin DETEMIR 100 UNIT/ML X5UNITS SQ SCH ×2 (09:45→21:09)
[2020-02-21] MEDS: carvediloL 6.25 MG TABLET PO SCH ×2 (09:45→18:26)
[2020-02-21] MEDS: lisinopriL 5 MG TABLET PO SCH (09:45)
[2020-02-21] MEDS: Nystatin POWDER 30 GM BOTTLE TP SCH ×2 (09:46→22:17)
[2020-02-21] MEDS: Cholecalciferol (D-3) 1,000 UNIT (25MCG) TABLET PO SCH (09:48)
[2020-02-21] MEDS: Insulin LISPRO 300 UNITS/3 ML VIAL SQ SCH ×4 (09:53→21:14)
[2020-02-21] MEDS ORDERED: Semaglutide [Ozempic] 0.25 MG SQ SCH (12:18)
[2020-02-21] MEDS: Isosorbide MONOnitrate (24 HR) 30 MG TAB.ER.24H PO SCH (18:25)
[2020-02-22] MEDS: Morphine Sulfate ER (12 HR) 15 MG TABLET.ER PO SCH ×2 (05:25→17:15)
[2020-02-22] MEDS: Insulin LISPRO 300 UNITS/3 ML VIAL SQ SCH ×4 (07:58→21:28)
[2020-02-22] MEDS: *HR* Metformin 500 MG TABLET PO SCH ×2 (08:14→17:15)
[2020-02-22] MEDS: Pregabalin 50 MG CAPSULE PO SCH ×2 (08:14→21:27)
[2020-02-22] MEDS: Cholecalciferol (D-3) 1,000 UNIT (25MCG) TABLET PO SCH (08:15)
[2020-02-22] MEDS: Furosemide 20 MG TABLET PO SCH (08:15)
[2020-02-22] MEDS: lisinopriL 5 MG TABLET PO SCH (08:15)
[2020-02-22] MEDS: carvediloL 6.25 MG TABLET PO SCH ×2 (08:15→17:15)
[2020-02-22] MEDS: Nystatin POWDER 30 GM BOTTLE TP SCH ×2 (08:21→21:32)
[2020-02-22] MEDS: Tiotropium 18 MCG inhalation IH SCH (08:34)
[2020-02-22] MEDS: Insulin DETEMIR 100 UNIT/ML X5UNITS SQ SCH ×2 (09:48→21:28)
[2020-02-22] MEDS: Isosorbide MONOnitrate (24 HR) 30 MG TAB.ER.24H PO SCH (17:15)
[2020-02-23] MEDS: Morphine Sulfate ER (12 HR) 15 MG TABLET.ER PO SCH ×2 (06:33→17:16)
[2020-02-23] MEDS: Insulin LISPRO 300 UNITS/3 ML VIAL SQ SCH ×4 (07:42→20:40)
[2020-02-23] MEDS: Tiotropium 18 MCG inhalation IH SCH (07:53)
[2020-02-23] MEDS: carvediloL 6.25 MG TABLET PO SCH ×2 (09:17→17:16)
[2020-02-23] MEDS: Pregabalin 50 MG CAPSULE PO SCH ×2 (09:18→20:38)
[2020-02-23] MEDS: lisinopriL 5 MG TABLET PO SCH (09:18)
[2020-02-23] MEDS: Furosemide 20 MG TABLET PO SCH (09:18)
[2020-02-23] MEDS: Cholecalciferol (D-3) 1,000 UNIT (25MCG) TABLET PO SCH (09:18)
[2020-02-23] MEDS: *HR* Metformin 500 MG TABLET PO SCH ×2 (09:18→17:16)
[2020-02-23] MEDS: Nystatin POWDER 30 GM BOTTLE TP SCH ×2 (09:19→20:46)
[2020-02-23] MEDS: *HR* OxyCODONE/APAP 5/325 TABLET PO PRN (09:24)
[2020-02-23] MEDS: Insulin DETEMIR 100 UNIT/ML X5UNITS SQ SCH ×2 (09:26→20:41)
[2020-02-23] MEDS: Isosorbide MONOnitrate (24 HR) 30 MG TAB.ER.24H PO SCH (17:16)
[2020-02-24] MEDS: Morphine Sulfate ER (12 HR) 15 MG TABLET.ER PO SCH ×2 (05:23→18:18)
[2020-02-24] MEDS: Insulin LISPRO 300 UNITS/3 ML VIAL SQ SCH ×4 (09:06→20:33)
[2020-02-24] MEDS: *HR* OxyCODONE/APAP 5/325 TABLET PO PRN (09:07)
[2020-02-24] MEDS: *HR* Metformin 500 MG TABLET PO SCH ×2 (09:07→18:19)
[2020-02-24] MEDS: Pregabalin 50 MG CAPSULE PO SCH ×2 (09:08→20:33)
[2020-02-24] MEDS: carvediloL 6.25 MG TABLET PO SCH ×2 (09:08→18:18)
[2020-02-24] MEDS: lisinopriL 5 MG TABLET PO SCH (09:09)
[2020-02-24] MEDS: Furosemide 20 MG TABLET PO SCH (09:10)
[2020-02-24] MEDS: Insulin DETEMIR 100 UNIT/ML X5UNITS SQ SCH ×2 (09:10→20:33)
[2020-02-24] MEDS: Cholecalciferol (D-3) 1,000 UNIT (25MCG) TABLET PO SCH (09:10)
[2020-02-24] MEDS: Nystatin POWDER 30 GM BOTTLE TP SCH ×2 (09:11→20:40)
[2020-02-24] MEDS ORDERED: *HR* Dextrose 50 % in Water (Vial) 50 ML VIAL IVP PRN (09:45)
[2020-02-24] MEDS: Tiotropium 18 MCG inhalation IH SCH (10:42)
[2020-02-24] MEDS: Isosorbide MONOnitrate (24 HR) 30 MG TAB.ER.24H PO SCH (18:19)
[2020-02-25] MEDS: Morphine Sulfate ER (12 HR) 15 MG TABLET.ER PO SCH (06:27)
[2020-02-25 07:38] VITALS: BP 135/70
[2020-02-25] MEDS: Insulin LISPRO 300 UNITS/3 ML VIAL SQ SCH ×2 (07:45→11:35)
[2020-02-25] MEDS: *HR* Metformin 500 MG TABLET PO SCH (09:04)
[2020-02-25] MEDS: Pregabalin 50 MG CAPSULE PO SCH (09:05)
[2020-02-25] MEDS: carvediloL 6.25 MG TABLET PO SCH (09:05)
[2020-02-25] MEDS: Cholecalciferol (D-3) 1,000 UNIT (25MCG) TABLET PO SCH (09:05)
[2020-02-25] MEDS: Furosemide 20 MG TABLET PO SCH (09:05)
[2020-02-25] MEDS: lisinopriL 5 MG TABLET PO SCH (09:05)
[2020-02-25] MEDS: Nystatin POWDER 30 GM BOTTLE TP SCH (09:08)
[2020-02-25] MEDS: Insulin DETEMIR 100 UNIT/ML X5UNITS SQ SCH (09:15)
[2020-02-25] MEDS: Tiotropium 18 MCG inhalation IH SCH (11:20)
[2020-02-25] MEDS ORDERED: *HR* OxyCODONE/APAP 5/325 TABLET PO ONE (12:15)
== END 2020-02-25 17:02 | disposition home health service (06) | DRG 560 ==
LOC: INPPIK 02-15 12:12
PROVIDERS: ADMIT Family Medicine; ATTEND Family Medicine